=== PATIENT | male | born 1975 | race Caucasian/White ===

== ENCOUNTER 2025-03-16 08:38 | Outpatient (CLI) | payer OTHER | END 2025-03-16 08:39 | disposition home or self-care (01) | LOC: CT 08:38 | DX: R10.9 Unspecified abdominal pain (principal); R93.2 Abnormal findings on diagnostic imaging of liver and biliary tract; N28.1 Cyst of kidney, acquired; N20.0 Calculus of kidney | CPT/HCPCS: 74178 ==